=== PATIENT | female | born 1995 | race Native Hawaiian/Other Pacific Islander ===

== ENCOUNTER 2018-02-11 20:03 | Emergency (ER) | payer OTHER ==
[~2018-02-11] VITALS: Ht 162.6 cm; Wt 77.6 kg
[2018-02-11 21:13] VITALS: BP 148/88; TEMP 98.2
== END 2018-02-11 21:15 | disposition home or self-care (01) ==
LOC: ED 20:03
DX: L03.011 Cellulitis of right finger (principal)
CPT/HCPCS: 99282

== ENCOUNTER 2021-04-24 13:31 | Emergency (ER) | payer OTHER ==
[~2021-04-24] VITALS: Ht 162.6 cm; Wt 72.6 kg
[2021-04-24 13:49] VITALS: TEMP 98.6
[2021-04-24 14:43] LABS: PLATELET COUNT 349 K/uL (152-353)
[2021-04-24 14:53] LABS: POTASSIUM 3.8 mmol/L (3.6-5.2)
[2021-04-24 15:00] LABS: PARTIAL THROMBOPLASTIN TIME 26.5 SECONDS (24.5-33.6)
[2021-04-24 16:12] VITALS: BP 128/76
== END 2021-04-24 16:12 | disposition home or self-care (01) ==
LOC: ED 13:31
PROVIDERS: Hospitalist
DX: F41.8 Other specified anxiety disorders (principal); F15.10 Other stimulant abuse, uncomplicated; F12.10 Cannabis abuse, uncomplicated
CPT/HCPCS: 80053; 80307; 80320; 81000; 82550; 83880; 84484; 85027; 85610; 85730; 93005; 96360; 99284